=== PATIENT | male | born 1975 | race Caucasian/White ===

== ENCOUNTER 2016-11-06 14:18 | Inpatient (IN) ==
--- NOTE | 2016-11-06 16:07 | Diag Imaging Result Doc PS360 ---
EXAM: CHEST-PORTABLE HISTORY: psych eval TECHNIQUE: AP portable at 1555 COMMENT: the cardiomediastinal silhouette is enlarged however some of this may be due to poor inspiration. There are no previous studies. IMPRESSION: Questionable cardiomegaly otherwise no evidence of acute disease. Electronically signed by Kyle Shea 11/06/2016 4:05 PM
[2016-11-06 16:11] LABS: MANUAL DIFF NEEDED? NO
[2016-11-06 16:12] LABS: URINE CULTURE NEEDED? NO; URINE MICRO REVIEW NEEDED? NO; URINE SOURCE CLEAN CATCH
[2016-11-06 16:15] LABS: BILIRUBIN URINE NEGATIVE (NEGATIVE); BLOOD URINE NEGATIVE (NEGATIVE); COLOR YELLOW; GLUCOSE URINE 100 mg/dL (NEGATIVE); LEUKOCYTES URINE NEGATIVE (NEGATIVE); NITRITE URINE NEGATIVE (NEGATIVE); PH URINE 5.5; PROTEIN URINE TRACE mg/dL (NEGATIVE); SP GRAVITY URINE 1.018; TURBIDITY URINE CLEAR (CLEAR); UROBILINOGEN URINE NORMAL (NORMAL)
[2016-11-06 16:15] LABS: BASO% 0.4 % (0.0-0.8); EOS# 0.09 X1000 (0.0-0.7); EOS% 0.9 % (0.0-10.0); HEMATOCRIT 46.9 % (42.0-52.0); HEMOGLOBIN 16.6 g/dL (14.0-18.0); LYMPH# 2.97 X1000 (1.2-3.4); LYMPH% 31.3 % (20.5-51.1); MCH 32.4 PG (27-31); MCHC 35.4 g/dL (33-37); MCV 91.4 FL (81-99); MONO% 10.5 % (1.7-9.3); MPV 9.9 FL (7.4-10.4); NEUT% 56.9 % (42.2-75.2); PLT 156 X1000 (130-400); RBC 5.13 XMIL (4.7-6.1)
[2016-11-06 16:16] LABS: UR EPITHELIAL CELLS <10 /HPF (<10); URINE BACTERIA NEGATIVE /HPF; URINE RBC <10 /HPF (<10); URINE WBC <10 /HPF (<10)
[2016-11-06] MEDS ORDERED: ATIVAN IV ONE ×2 (16:35→20:37)
[2016-11-06] MEDS ORDERED: M.V.I.-12 10 ML, FOLIC ACID 1 MG, MAGNESIUM SULFATE 1 GM, THIAMINE 100 MG in NS 1,000 ML IV ONE ×2 (16:36→18:05)
[2016-11-06 16:40] LABS: AGAP 16; ALBUMIN 3.6 g/dL (3.5-5.0); ALKALINE PHOSPHATASE 99 U/L (32-122); BUN 11 mg/dL (8-22); CHLORIDE 95 mmol/L (98-107); COSMO 270; GOT 182 U/L (10-34); GPT 175 U/L (10-44); MAGNESIUM 1.8 mg/dL (1.5-2.7); POTASSIUM 3.4 mmol/L (3.5-5.1); SODIUM 133 mmol/L (136-145); TCO2 22 mmol/L (25-35); TOTAL BILIRUBIN 0.42 mg/dL (0.20-1.00); TOTAL PROTEIN 7.2 g/dL (6.3-8.3)
--- NOTE | 2016-11-06 18:07 | PROVIDER DOCUMENTATION ---
This chart was entered by Kami Pagan Scribe, acting as scribe for Mauro Panda MD. [id number] Abuse/Overdose - General Chief Complaint: Req. Detox Stated Complaint: NEED DETOX Time Seen by Provider: 11/06/16 15:55 Source: patient Allergies/Adverse Reactions: Allergies Allergy/AdvReac Type Severity Reaction Status Date / Time No Known Allergies Allergy Verified 11/06/16 15:23 Home Medications: Home Medication List Medication Instructions Recorded Confirmed Last Taken Type NK [No Home Medications] 11/06/16 11/06/16 Unknown History - History of Present Illness-Drug/Alcohol Nature of Presenting Problem: Pt is 41 y/o M presents to the ED with request for alcohol detox. Pt states a long hx of alcohol abuse. Pt states he has been on a 10 day alcohol binge. Pt states if he does not get help he will end up killing himself from drinking. Pt denies prior rehab and SI. Pt states RUQ pain. This episode of drinking or use began:: other (10 days) Severity: reports: mild Situational problems related to:: reports: N/A Psychiatric Complaints: reports: denies symptoms Associated Symptoms: reports: other (abdominal pain) Any injuries associated with this episode of intoxication?: No Similar Symptoms Previously?: Yes Recently seen or treated by another doctor?: No - Substance Abuse Substance Use: reports: alcohol - Alcohol Abuse Usually drinks:: binge Other alcohols?: reports: N/A Review of Systems - Adult - REVIEW OF SYSTEMS - ADULT Constitutional: reports: no symptoms reported Eyes: reports: no symptoms reported Ears, Nose, Mouth & Throat: reports: no symptoms reported Cardiovascular: reports: no symptoms reported Respiratory: reports: no symptoms reported Gastrointestinal: reports: no symptoms reported Genitourinary: reports: no symptoms reported Musculoskeletal: reports: no symptoms reported Integumentary: reports: no symptoms reported Neurological: reports: no symptoms reported Psychiatric: reports: alcohol/drug dependence (alcohol dependence). denies: anxiety, panic attacks, suicidal thoughts Endocrine: reports: no symptoms reported Hematologic/Lymphatic: reports: no symptoms reported Allergic/Immunologic: reports: no symptoms reported All Other Systems: Reviewed and Negative Past History - Adult - PAST MEDICAL HISTORY-ADULT Review of Records: reports: Nursing Assessment Review, Medications Reviewed, Social history reviewed & non-contributory. Major Childhood Illnesses: reports: denies history Cardiovascular: reports: HTN Respiratory: reports: denies history Gastrointestinal: reports: diverticulosis, hepatitis (C) Obstetrical/Gynecological: reports: denies history Genitourinary: reports: kidney stones Musculoskeletal: reports: denies history Neurological: reports: denies history Psychiatric: reports: depression Endocrine/Immune: reports: denies history Other Conditions: reports: other (Hep C) - PRIOR SURGERIES/PROCEDURES Surgical/Procedure History: reports: other (liver bx) - PRIOR HOSPITALIZATIONS Prior Hospitalizations: reports: none - IMMUNIZATION STATUS Childhood Immunizations: See Nurse Assessment Flu Vaccine: See Nurse Assessment - FAMILY HISTORY Family History: reviewed, not pertinent - SOCIAL HISTORY Smoking: quit less than 1 year, cigarettes Substance Use: alcohol Alcohol Use Frequency: every day Number of drinks per typical drinking period:: 11-15 drinks Living Situation: family Physical Exam-General - PHYSICAL EXAM-ADULT Initial Vital Signs Reviewed: Yes - CONSTITUTIONAL General Appearance: alert, no apparent distress - EYES Eyes: PERRL/EOMI, pink conjunctivae - HEAD, EARS, NOSE, MOUTH & THROAT HENMT: normocephalic/atraumatic, moist mucous membranes, normal ENT inspection - NECK Neck: non-tender, full range of motion, supple, normal inspection - RESPIRATORY Respiratory: chest non-tender, lungs clear, normal breath sounds - CARDIOVASCULAR Cardiovascular: normal peripheral pulses, tachycardia - GASTROINTESTINAL (ABDOMEN) Abdominal Exam: normal bowel sounds, soft, tenderness (RUQ) - LYMPHATIC Lymphatic: no adenopathy - MUSCULOSKELETAL Back Exam: normal inspection, no CVA tenderness, no vertebral tenderness Extremity: normal range of motion, non-tender, normal gait, normal inspection - SKIN Integumentary: normal color, normal turgor, warm/dry - NEUROLOGIC Neurologic: grossly normal - PSYCHIATRIC Psych/Mental Status: normal mood/affect, oriented x 3 Progress - PLAN OF CARE/RESULTS Progress/Plan/Lab Results: Vital Signs - 8 hr 11/06/16 14:33 Temperature 97.9 F Pulse Rate 114 H Respiratory Rate 20 Blood Pressure 146/100 O2 Sat by Pulse Oximetry 97 Laboratory Results - last 24 hr 11/06/16 11/06/16 11/06/16 15:00 15:00 15:00 WBC 9.48 RBC 5.13 Hgb 16.6 Hct 46.9 MCV 91.4 MCH 32.4 H MCHC 35.4 RDW Std Deviation 12.7 Plt Count 156 MPV 9.9 Immature Gran % (Auto) 0.0 Neut % (Auto) 56.9 Lymph % (Auto) 31.3 [place] % (Auto) 10.5 H Eos % (Auto) 0.9 Baso % (Auto) 0.4 Immature Gran # (Auto) 0.00 Neut # (Auto) 5.38 Lymph # (Auto) 2.97 [place] # (Auto) 1.00 H Eos # (Auto) 0.09 Baso # (Auto) 0.04 Sodium 133 L Potassium 3.4 L Chloride 95 L Carbon Dioxide 22 L Anion Gap 16 BUN 11 Creatinine 0.7 Estimated GFR/1.73 m2 > 60 BUN/Creatinine Ratio 16 Glucose 173 H Calculated Osmolality 270 Calcium 8.0 L Magnesium 1.8 Total Bilirubin 0.42 AST 182 H ALT 175 H Alkaline Phosphatase 99 Total Protein 7.2 Albumin 3.6 Globulin 3.6 Albumin/Globulin Ratio 1.0 Vitamin B12 Folate 6.1 L TSH Free T4 Urine Source Urine Color Urine Turbidity Urine pH Ur Specific [place] Urine Protein Ur Glucose (Stick) Ur Ketones (Stick) Urine Blood Urine Nitrite Urine Bilirubin Urobilinogen Dipstick Urine Leukocytes Urine WBC (Auto) Urine RBC (Auto) U Epithel Cells (Auto) Urine Bacteria (Auto) RPR 11/06/16 11/06/16 11/06/16 15:00 15:00 15:00 WBC RBC Hgb Hct MCV MCH MCHC RDW Std Deviation Plt Count MPV Immature Gran % (Auto) Neut % (Auto) Lymph % (Auto) [place] % (Auto) Eos % (Auto) Baso % (Auto) Immature Gran # (Auto) Neut # (Auto) Lymph # (Auto) [place] # (Auto) Eos # (Auto) Baso # (Auto) Sodium Potassium Chloride Carbon Dioxide Anion Gap BUN Creatinine Estimated GFR/1.73 m2 BUN/Creatinine Ratio Glucose Calculated Osmolality Calcium Magnesium Total Bilirubin AST ALT Alkaline Phosphatase Total Protein Albumin Globulin Albumin/Globulin Ratio Vitamin B12 426 Folate TSH 1.75 Free T4 1.06 Urine Source Urine Color Urine Turbidity Urine pH Ur Specific [place] Urine Protein Ur Glucose (Stick) Ur Ketones (Stick) Urine Blood Urine Nitrite Urine Bilirubin Urobilinogen Dipstick Urine Leukocytes Urine WBC (Auto) Urine RBC (Auto) U Epithel Cells (Auto) Urine Bacteria (Auto) RPR NON-REACTIVE 11/06/16 15:59 WBC RBC Hgb Hct MCV MCH MCHC RDW Std Deviation Plt Count MPV Immature Gran % (Auto) Neut % (Auto) Lymph % (Auto) [place] % (Auto) Eos % (Auto) Baso % (Auto) Immature Gran # (Auto) Neut # (Auto) Lymph # (Auto) [place] # (Auto) Eos # (Auto) Baso # (Auto) Sodium Potassium Chloride Carbon Dioxide Anion Gap BUN Creatinine Estimated GFR/1.73 m2 BUN/Creatinine Ratio Glucose Calculated Osmolality Calcium Magnesium Total Bilirubin AST ALT Alkaline Phosphatase Total Protein Albumin Globulin Albumin/Globulin Ratio Vitamin B12 Folate TSH Free T4 Urine Source CLEAN CATCH Urine Color YELLOW Urine Turbidity CLEAR Urine pH 5.5 Ur Specific [place] 1.018 Urine Protein TRACE A Ur Glucose (Stick) 100 A Ur Ketones (Stick) NEGATIVE Urine Blood NEGATIVE Urine Nitrite NEGATIVE Urine Bilirubin NEGATIVE Urobilinogen Dipstick NORMAL Urine Leukocytes NEGATIVE Urine WBC (Auto) <10 Urine RBC (Auto) <10 U Epithel Cells (Auto) <10 Urine Bacteria (Auto) NEGATIVE RPR Orders Category Date Time Status CHEST-PORTABLE [RAD] Stat Exams 11/06/16 15:51 Completed ALCOHOL BLOOD Stat Lab 11/06/16 17:57 Uncollected CBC WITH ELECTRONIC DIFF [HEME] Stat Lab 11/06/16 15:00 Completed COMPREHENSIVE METABOLIC PANEL [CHEM] Stat Lab 11/06/16 15:00 Completed FOLATE Stat Lab 11/06/16 15:00 Completed FREE T4 Stat Lab 11/06/16 15:00 Completed MAGNESIUM [CHEM] Stat Lab 11/06/16 15:00 Completed RPR [SERO] Stat Lab 11/06/16 15:00 Completed TSH Stat Lab 11/06/16 15:00 Completed URINALYSIS W/POSS RFLX CULT-1 [URINALYSIS] Stat Lab 11/06/16 15:59 Completed VITAMIN B12 Stat Lab 11/06/16 15:00 Completed Banana Bag X1 Bag Over 1 Hour Med 11/06/16 18:05 Ordered Mvi [M.v.i.-12] 10 ml Folic Acid 1 mg Magnesium Sulfate 1 gm Thiamine 100 mg 0.9% Sodium Chloride Inj [Ns] 1,000 ml IV NOW Lorazepam [Ativan] Med 11/06/16 16:35 Discontinued 2 mg IV NOW ONE Mvi [M.v.i.-12] 10 ml Med 11/06/16 16:36 Discontinued Folic Acid 1 mg Magnesium Sulfate 1 gm Thiamine 100 mg 0.9% Sodium Chloride Inj [Ns] 1,000 ml IV NOW EKG [EKG] Stat Ther 11/06/16 15:51 Ordered Result Diagrams: 11/06/16 15:00 11/06/16 15:00 - EKG 1 Time of EKG reading by physician:: 16:30 EKG Read and Signed by:: Mauro Panda EKG Interpretation (*Must complete 3 of following elements*): Abnormal Rate: 96 Rhythm: normal sinus rhythm Comments: voltage criteria for left ventricular hypertrophy - XRAY 1 XRAY Study: Chest Impression: Abnormal XRAY Interpretation: questionable cardiomegaly otherwise no evidence of acute disease Departure - Departure Date of Disposition Decision: 11/06/16 Time of Disposition Decision: 18:06 DIAGNOSIS: Alcohol abuse Disposition: HOME 01 Certified Medical Emergency: Emergent Condition: Stable Additional Freetext Instructions: Follow up with outpatient detox center. Referrals and Follow-Ups: None,PCP [Primary Care Provider] - - Critical Care Note This patient required my direct & personal management of CC.: No Attestation - Physician/ JOSE FRANCISCO Attestation The physician spent face to face time with patient:: Yes Advanced Practice Provider documentation review:: The physician spent face to face time with this patient and agrees with all MLP documentation, treatment, and medical decision making by the MLP. See provider notes for further information. This chart was documented by the indicated scribe, (Kami Pagan Scribe) and accurately reflects the services I performed and decisions made by Amarilys gray Christophe I, MD, as attested by the provider's signature.
[2016-11-06 20:02] LABS: UR AMPHETAMINES QUAL NONE DETECTED (NONE DETECT); UR BARBITUATES QUAL NONE DETECTED (NONE DETECT); UR BENZODIAZEPIN QUAL NONE DETECTED (NONE DETECT); UR CANNABINOIDS QUAL NONE DETECTED (NONE DETECT); UR COCAINE QUAL NONE DETECTED (NONE DETECT); UR METHADONE QUAL NONE DETECTED (NONE DETECT); UR OPIATES QUAL NONE DETECTED (NONE DETECT); UR OXYCODONE QUAL NONE DETECTED (NONE DETECT); UR PCP QUAL NONE DETECTED (NONE DETECT)
[2016-11-06] MEDS ORDERED: OFIRMEV 1000 MG/ISOTONIC SOLN 1,000 MG/100 ML BOTTLE IV ONE (20:09)
[2016-11-06] MEDS ORDERED: TORADOL IV ONE (23:06)
[2016-11-07] MEDS ORDERED: ATIVAN IV ONE (01:17)
--- NOTE | 2016-11-07 04:14 | HISTORY AND PHYSICAL ---
CHIEF COMPLAINT: Having nausea, vomiting, not feeling well. HISTORY OF PRESENTING ILLNESS: A 41-year-old male with a history of chronic alcoholism and hepatitis C. Apparently had been going on a binge drink for the past 10 days. His last drink was about 2 days ago. He states that he started getting nausea and vomiting, and subsequently had come to the emergency department. In the ER, he was evaluated. He had some symptoms of depression with suicidal ideation. He was evaluated by psychiatry. However, he does not have any insurance so he could not be admitted to their service. However, patient continued to have symptoms of withdrawal and agitation. Due to his presenting symptoms, it was thought that he would need admission for further evaluation and management. At the time of my examination, he denied any headache, fever, chills, chest pain, shortness of breath, or any weight changes. States he is having nausea, vomiting, and he seeing things and not feeling well. PAST MEDICAL HISTORY: Hepatitis C. PAST SURGICAL HISTORY: None. ALLERGIES: No known drug allergies. CURRENT MEDICATIONS: None. SOCIAL HISTORY: He denies any history of smoking. Admits to alcohol use daily. History of IV drug abuse in the past. FAMILY HISTORY: No history of coronary disease. REVIEW OF SYSTEMS: Twelve point review of systems listed as in the HPI. Other systems negative. PHYSICAL EXAMINATION: GENERAL: Cooperative, friendly male. He is resting more comfortably now. VITAL SIGNS: Temperature 97.9 degrees, pulse 114, respirations 20, blood pressure 146/100, he is saturating 97%. HEENT: Atraumatic, normocephalic. Extraocular movements intact. PERRLA. NECK: No masses. CHEST: Clear to auscultation. CARDIOVASCULAR: Regular rate and rhythm. ABDOMEN: Soft. Positive bowel sounds. Some right upper quadrant tenderness. EXTREMITIES: No edema. NEUROLOGIC: He is awake, alert, oriented x3. : No bladder distention. SKIN: Warm. LABORATORIES AND STUDIES: Sodium 133, potassium 3.4, chloride 95, CO2 is 22, BUN is 11, creatinine 0.7, glucose is 173. AST is 182, ALT 173, alkaline phosphatase 99, folate 6.1. Alcohol level is 208. ASSESSMENT: A 41-year-old male with a history of hepatitis C and chronic alcoholism who had presented to the emergency department after the patient went on a 10 day binge drinking. His last drink was about 2 days ago. He developed symptoms of agitation and hallucination consistent with withdrawal. Subsequently, he will need hospitalization for further management. 1. Alcohol withdrawal. 2. Chronic alcoholism. 3. Abnormal liver function tests. 4. History of hepatitis C. 5. Depression was suicidal ideation. PLAN: 1. We will admit patient to medical floor. 2. Continue with support treatment. 3. We will give patient a banana bag and Ativan p.r.n. agitation. 4. We will check an ultrasound of the right upper quadrant. 5. We will consult psychiatry again. 6. We will put patient on DVT prophylaxis with SCDs. 7. We will continue to follow and reassess. cc: Fercho Caal MD
[2016-11-07] MEDS ORDERED: ZOFRAN IV PRN (04:25)
--- NOTE | 2016-11-07 05:02 | EKG Report ---
Test Performed on : 11/06/2016 4:30:44 PM Test Reason : [facility] court medical clearance Blood Pressure : / mmHG Vent. Rate : 096 BPM Atrial Rate : 096 BPM P-R Int : 132 ms QRS Dur : 084 ms QT Int : 346 ms P-R-T Axes : 055 -08 -12 degrees QTc Int : 437 ms Normal sinus rhythm. Voltage criteria for left ventricular hypertrophy Abnormal ECG No previous ECGs available Unconfirmed Result
[2016-11-07] MEDS: ATIVAN IV PRN ×3 (05:03→19:48)
[2016-11-07] MEDS: MORPHINE IV PRN ×5 (05:03→21:58)
--- NOTE | 2016-11-07 08:07 | Diag Imaging Result Doc PS360 ---
EXAM: US ABDOMEN-COMPLETE HISTORY: abdominal pain TECHNIQUE: Transabdominal COMMENT: The liver is hyperechoic. The aorta and inferior vena cava are normal in appearance where there are visible. There is antegrade flow in the portal vein. The gallbladder is clear and nontender. The head of the pancreas is unremarkable, the remainder is obscured. The kidneys are without evidence of hydronephrosis or mass. The spleen is not enlarged. There are no abnormal fluid collections. IMPRESSION: Hepatic steatosis. Electronically signed by Kyle Shea 11/07/2016 8:05 AM
[2016-11-07] MEDS: FOLIC ACID PO SCH (09:18)
--- NOTE | 2016-11-07 13:32 | PROGRESS NOTE ---
DATE: 11/07/2016 SUBJECTIVE: The patient is awake, alert and oriented. Answers questions appropriately. He denies having any fever or chills. The patient wants to quit smoking, but has been on binge drinking for the last 10 days. Not suicidal nor homicidal. OBJECTIVE: Vital signs: Blood pressure 132/88, pulse of 83, respirations 17, temperature of 98.6 degrees, satting 98% on room air. General appearance: A well-developed, well-nourished white male in no acute distress. HEENT: Anicteric sclerae. Clear conjunctivae. Neck: Supple. No JVD. No bruit. Cardiovascular: S1, S2. Normal rate and rhythm. No murmur, rubs, or gallops. Pulmonary: Clear to auscultation bilaterally. GI: Soft, nontender, nondistended. Normoactive bowel sounds. Musculoskeletal: No clubbing, cyanosis, or edema. Neuro: No tremor. LABS: WBC 9.4, hemoglobin 16.6, hematocrit of 46.9, platelets of 156. Chemistry: Sodium 133, potassium 3.4, chloride 99, bicarbonate 22, BUN 11, creatinine 0.7, glucose of 170. ASSESSMENT AND PLAN: This is a 41-year-old white male alcoholic admitted to the hospital asking for help to get him detoxed: 1. Alcohol abuse. The patient denies having any history of delirium tremens. He was able to go for a long period without drinking and has no problem. He was sober for about 6 months until 10 days prior to his admission after he went on a binge drinking. Social workers unable to get him to rehab to detox any time soon. The patient does have insurance. He does go to [facility] and has supportive care. We will transfer the patient to the floor. We will monitor him in-house for another day. If there are no signs of alcohol withdrawal, we will discharge the patient home and will try to help with his alcohol abuse.
[2016-11-07] MEDS: LIBRIUM PO SCH ×2 (15:59→23:03)
[2016-11-08] MEDS: MORPHINE IV PRN ×4 (01:38→13:35)
[2016-11-08] MEDS: ATIVAN IV PRN ×2 (02:25→08:27)
[2016-11-08] MEDS: LIBRIUM PO SCH ×2 (04:14→10:16)
[2016-11-08 06:46] LABS: MANUAL DIFF NEEDED? NO
[2016-11-08 06:51] LABS: BASO% 0.3 % (0.0-0.8); EOS# 0.12 X1000 (0.0-0.7); EOS% 1.9 % (0.0-10.0); HEMATOCRIT 45.5 % (42.0-52.0); HEMOGLOBIN 16.4 g/dL (14.0-18.0); LYMPH# 1.63 X1000 (1.2-3.4); MCH 32.6 PG (27-31); MCV 90.5 FL (81-99); MONO# 0.87 X1000 (0.11-0.59); MONO% 13.9 % (1.7-9.3); MPV 10.6 FL (7.4-10.4); NEUT% 57.9 % (42.2-75.2); PLT 114 X1000 (130-400); RBC 5.03 XMIL (4.7-6.1)
[2016-11-08 07:17] LABS: AGAP 10; BUN 12 mg/dL (8-22); CALCIUM 8.7 mg/dL (8.8-10.2); CHLORIDE 97 mmol/L (98-107); COSMO 268; POTASSIUM 3.6 mmol/L (3.5-5.1); SODIUM 134 mmol/L (136-145); TCO2 27 mmol/L (25-35)
[2016-11-08] MEDS: FOLIC ACID PO SCH (08:28)
[2016-11-08 11:11] VITALS: BP 151/104
--- NOTE | 2016-11-08 12:00 | PROGRESS NOTE ---
DATE: 11/08/2016 SUBJECTIVE: The patient is complaining of having some pain in his abdomen, complaining of having some dizziness. OBJECTIVE: Vital signs: Blood pressure 151/104, pulse of 89, respirations 18, temperature of 97.4 degrees, satting 97%. General appearance: Well-developed, well-nourished white male in no acute distress. HEENT: Anicteric sclerae. Clear conjunctivae. Neck: Supple. No JVD. No bruit. Cardiovascular: S1, S2. Normal rate and rhythm. No murmur, rubs, or gallops. Pulmonary: Clear to auscultation bilaterally. GI: Soft, nontender, nondistended. Normoactive bowel sounds. Musculoskeletal: No clubbing, cyanosis, or edema. ASSESSMENT AND PLAN: A 41-year-old, alcoholic admitted requesting detoxification: 1. Alcoholism. restuarant crew worker had been consulted and we have provided the patient with information that he needs to check himself into rehabilitation if he needed. He had to volunteer to do so. The patient does not have any insurance and [facility] probably will not take him. restuarant crew worker has made a referral, but he can follow up with them as an outpatient. From my standpoint, the patient is stable enough to go home. His abdominal pain with an ultrasound just showed fatty liver, but otherwise no acute process. As far as the dizziness is concerned, we will get the patient up and walking. I do not think this has anything to do with the blood pressure. The patient unfortunately does not have anywhere to go. I would suggest [facility] or the [facility] in [place].
--- NOTE | 2016-11-08 16:56 | DISCHARGE SUMMARY ---
ADMISSION DATE: 11/06/2016 DISCHARGE DATE: 11/08/2016 CONSULTATIONS: None. PERTINENT PROCEDURES: Abdominal ultrasound showed hepatic steatosis. DISCHARGE DIAGNOSIS: Alcohol abuse. Inside Sales Director was consulted. The patient has been given information for a list of treatment centers to call as well as his sponsor has been notified. The patient was also evaluated by Jhonatan as well as Bharathi Sanderson. [facility] does not recommend any psychiatric treatment however secondary to the patient not having health insurance Jhonatan access representative explained the process for state funded treatment centers that take patients based on an indigent basis. They have contacted [facility] as well as [facility] for state evaluation for inpatient treatment. He has also been advised that the general wait time is from 2-6 weeks. The patient was monitored closely for DTs. The patient stated he had been for about 6 months until 10 days prior to his admission after he went binge drinking. He does go to [facility] for supportive care. The patient was transferred from the ICU to the floor and monitored for another day with no signs of DTs. Stable. HOSPITAL COURSE: The patient is a 41-year-old male with chronic alcoholism and hepatitis C. He had been binge drinking for 10 days. Prior to that he had been sober for about 6 months. He started to have nausea and vomiting. Subsequently came to the ED where he was evaluated. He had some symptoms of depression and suicidal ideation. He was evaluated by psychiatry, however they did not recommend any inpatient services. However patient continued to have symptoms of withdrawal and agitation. So he was admitted to the medical floor and provided with supplemental support and treatment with a banana bag and Ativan p.r.n. for agitation. He underwent a right upper quadrant ultrasound that hepatic steatosis. Jhonatan was also consulted and referred the patient for outpatient treatment through a state facility secondary to not having any insurance. The patient was moved out of the ICU to the floor. He has remained stable. Again, he has support with a sponsor as well as . The patient can return to the ED for any worsening of symptoms. Vital signs at time of his discharge, temperature is 97.4 degrees, heart rate 83 , respirations 20, blood pressure is 151/104. O2 is 97% on room air. DISCHARGE DIET: Regular. DISCHARGE MEDICATIONS: As per Dr. Berumen. Please see MAR. DISPOSITION: The patient is being discharged home. FOLLOWUP: He will follow up with a state approved outpatient detox center. DISCHARGE INSTRUCTIONS: The patient has been advised to abstain from any alcohol. Patient can return to the ED for any worsening of symptoms DISCHARGE TIME: Thirty minutes. Dictated by GREGG Valdez for Steve Berumen MD I personally evaluated and examined the patient in conjunction to the TRAINING TECHNICIAN and agreed with her plans and disposition. SARAHI
== END 2016-11-08 14:05 | disposition home or self-care (01) ==
LOC: ED 14:18 → ICU 11-07 04:11 → SUATTDRO 11-07 04:11 → 4N 11-07 15:46
PROVIDERS: ATTEND Internal Medicine

== ENCOUNTER 2019-02-22 12:47 | Inpatient (IN) ==
--- NOTE | 2019-02-22 13:56 | Diag Imaging Result Doc PS360 ---
EXAM: CHEST-1 VIEW 02/22/2019 HISTORY: Abd pain TECHNIQUE: Erect AP portable upright at 1345 COMMENT: The inspiration is less optimal than on 12/22/2018. Compared to the previous studies are has been no significant change. IMPRESSION: Stable chest. Electronically signed by Kyle Shea 02/22/2019 1:53 PM
[2019-02-22] MEDS ORDERED: ATIVAN IV ONE (14:12)
[2019-02-22] MEDS ORDERED: NS 1,000 ML IV ONE ×2 (14:12→16:46)
[2019-02-22] MEDS ORDERED: PHENERGAN IM ONE (14:13)
[2019-02-22] MEDS ORDERED: SODIUM CHLORIDE 0.9% INJ ONE (14:14)
[2019-02-22] MEDS ORDERED: REGLAN IV ONE (14:14)
[2019-02-22] MEDS ORDERED: PROTONIX IV ONE (14:14)
[2019-02-22 14:41] LABS: BASO# 0.04 X1000 (0.0-0.2); BASO% 0.4 % (0.0-0.8); HEMATOCRIT 54.2 % (42.0-52.0); HEMOGLOBIN 19.4 g/dL (14.0-18.0); LYMPH# 1.54 X1000 (1.2-3.4); MCH 32.1 PG (27-31); MCHC 35.8 g/dL (33-37); MCV 89.7 FL (81-99); MONO# 0.59 X1000 (0.11-0.59); MONO% 5.7 % (1.7-9.3); MPV 9.9 FL (7.4-10.4); NEUT# 8.13 X1000 (1.4-6.5); NEUT% 78.9 % (42.2-75.2); PLT 199 X1000 (130-400); RBC 6.04 XMIL (4.7-6.1)
[2019-02-22 14:59] LABS: INR 1.07; PROTIME 14.1 Seconds (11.0-16.0)
[2019-02-22 15:00] LABS: AGAP 23; ALB/GLOB RATIO 1.3; ALBUMIN 4.6 g/dL (3.5-5.0); ALKALINE PHOSPHATASE 115 U/L (32-122); BUN 10 mg/dL (8-22); CALCIUM 8.2 mg/dL (8.8-10.2); CHLORIDE 91 mmol/L (98-107); COSMO 289; CREATININE 0.9 mg/dL (0.7-1.2); ESTIMATED GFR > 60; GLUCOSE 361 mg/dL (70-104); GOT 231 U/L (10-34); GPT 179 U/L (10-44); POTASSIUM 3.5 mmol/L (3.5-5.1); SODIUM 138 mmol/L (136-145); TCO2 24 mmol/L (25-35); TOTAL BILIRUBIN 1.09 mg/dL (0.20-1.00); TOTAL PROTEIN 8.2 g/dL (6.3-8.3)
[2019-02-22 15:02] LABS: PTT 27.4 Seconds (22.3-41.8)
[2019-02-22 15:09] LABS: CK PROFILE 267 U/L (24-204)
[2019-02-22 15:53] LABS: CK INDEX 1.6 (0.0-2.5); CK-MB 4.14 ng/mL (0.0-5.0)
[2019-02-22] MEDS ORDERED: NS 500 ML IV ONE (16:43)
[2019-02-22] MEDS ORDERED: DILAUDID IV ONE ×2 (16:47→18:00)
[2019-02-22 17:37] LABS: URINE SOURCE CLEAN CATCH
[2019-02-22 17:44] LABS: BILIRUBIN URINE NEGATIVE (NEGATIVE); BLOOD URINE TRACE (NEGATIVE); COLOR YELLOW; GLUCOSE URINE 1000 mg/dL (NEGATIVE); KETONE URINE NEGATIVE (NEGATIVE); LEUKOCYTES URINE NEGATIVE (NEGATIVE); NITRITE URINE NEGATIVE (NEGATIVE); PROTEIN URINE 200 mg/dL (NEGATIVE); TURBIDITY URINE CLEAR (CLEAR); UROBILINOGEN URINE 4 mg/dL (NORMAL)
[2019-02-22 17:46] LABS: UR EPITHELIAL CELLS <10 /HPF (<10); URINE BACTERIA NEGATIVE /HPF; URINE RBC <10 /HPF (<10); URINE WBC <10 /HPF (<10)
--- NOTE | 2019-02-22 17:50 | HISTORY AND PHYSICAL ---
HISTORY OF PRESENT HISTORY: He presented to the emergency room with alcohol intoxication, but nausea and vomiting and dark emesis. He had been here on 10/15/2017, vomiting, agitation, epigastric pain at that time. This is a 43-year-old with past medical history of clinical depression, alcohol abuse. He has been on alcohol for quite a bit. Apparently, he drinks vodka and will go on alcohol binges. His alcohol level was 400. Complaining of nausea and vomiting up dark coffee-ground material. He is hurting in his abdomen, mainly in the right quadrant. PAST SURGICAL HISTORY: No history of surgeries. PAST MEDICAL HISTORY: Has a history notable for hepatitis C. I am not sure what his status is, whether it has been treated, but we will check a hepatitis profile. SOCIAL HISTORY: He does not smoke, has not used IV drugs by previous report and he used to drink about 2 bottles of vodka a day. Not sure how much he has recently consumed. REVIEW OF SYSTEMS: Not really able to give much on review of systems. He was very miserable and had nausea. He was apologetic that we had to put him in the hospital and called himself a drunk. PHYSICAL EXAMINATION: VITAL SIGNS: Temperature 98.1 degrees, pulse 120, respirations 28, blood pressure 140/102. HEENT: Pupils appear equal. I did not see any distended neck veins. He had no respiratory distress. He did not appear to be jaundiced. Sclera appeared clear. Conjunctiva was pink. ABDOMEN: Was not distended. He was complaining of pain in the right side. I did not appreciate any pedal edema. Neck appears supple. He did not report any recent head traumas or chest trauma. LABORATORY DATA: White count 76225, hematocrit is 54, platelet count 199,000. Sodium .138, potassium 3.5, chloride 91, BUN 10, creatinine 0.9, blood sugar 361, magnesium 2.0, calcium 8.2, AST 231, ALT 179. CK was 267, troponin less than 0.01 albumin was 4.6. Pro time 14.1, PTT was 27. His plasma ethanol level was 420 mg per dL. Chest x-ray, the inspiration was less than optimal, but appears stable compared to chest x-ray since 12/22/2018. ASSESSMENT AND PLAN: 1. Alcohol intoxication. Suspect alcoholic hepatitis. Although he has a history of hepatitis C, I think we need to try and see whether he was treated for hepatitis C in the past. We will get another hepatitis profile. We will ask Gastroenterology to help us with this. He had a renal CT done in March 2015. At that time, he had some mid right ureteral stones, nonobstructing left renal stones, partial resolution of sigmoid diverticulitis. He had an abdominal ultrasound and November 2016. He had hepatic steatosis at that time so we will probably repeat another ultrasound on his abdomen. I will see what GI wants to do. He does not have a history of cirrhosis that we know of. His differential is gastritis and peptic ulcer disease, esophageal irritation including Savanna-Rfye tear and possible esophageal varices if he has portal hypertension. For now, we will give him some fluids and some antiemetics and see if he can kind of calm down. We will watch his hemoglobin and hematocrit. 2. Alcohol intoxication. He may have withdrawal symptoms including delirium toxicosis, so we will watch him in the unit. He can have Ativan 1 to 2 mg q. 2 hours p.r.n. withdrawal signs or agitation. We will run normal saline in at 150 mL an hour and we will let him use Zofran. I will also let him use Reglan for nausea. 3. Note that his sugar is high so I do not know if this is a new diagnosis, but we will check a hemoglobin A1c tomorrow and we will check patterned sugars. He may have underlying diabetes. 4. History of depression, aware. REVIEW OF HIS CURRENT MEDICATIONS: He is taking Flagyl 500 mg p.o. t.i.d. I am not sure what that was for. We do know he has a history of diverticulosis and he has had diverticulitis before. cc: Manuelito Rubin MD
[2019-02-22] MEDS: NS 1,000 ML IV SCH (19:36)
[2019-02-22] MEDS: ATIVAN IV PRN ×2 (19:57→23:02)
[2019-02-22] MEDS: HUMALOG SUBQ SCH (21:00)
[2019-02-22] MEDS: REGLAN IV SCH (21:00)
[2019-02-22 21:25] LABS: HEMATOCRIT 51.8 % (42.0-52.0); HEMOGLOBIN 18.3 g/dL (14.0-18.0)
[2019-02-22] MEDS: PROTONIX IV SCH (23:03)
[2019-02-23] MEDS: REGLAN IV SCH ×4 (02:42→20:41)
[2019-02-23] MEDS: ATIVAN IV PRN ×2 (02:42→16:48)
[2019-02-23] MEDS ORDERED: MORPHINE IV ONE (05:23)
--- NOTE | 2019-02-23 06:12 | Diag Imaging Result Doc PS360 ---
EXAM: CHEST-PORTABLE HISTORY: FOLLOW UP TECHNIQUE: Portable chest COMPARISON: 02/22/2019 FINDINGS: Slightly improved inspiratory effort. The heart is borderline mildly prominent. The vessels are not distended. There are no infiltrates. No effusion identified. IMPRESSION: Improved inspiratory effort. Electronically signed by Abdulaziz Valencia 02/23/2019 6:10 AM
[2019-02-23] MEDS: HUMALOG SUBQ SCH ×4 (06:23→20:46)
[2019-02-23 06:57] LABS: BASO# 0.02 X1000 (0.0-0.2); BASO% 0.2 % (0.0-0.8); EOS# 0.01 X1000 (0.0-0.7); EOS% 0.1 % (0.0-10.0); HEMATOCRIT 44.3 % (42.0-52.0); HEMOGLOBIN 15.3 g/dL (14.0-18.0); LYMPH# 2.53 X1000 (1.2-3.4); LYMPH% 27.6 % (20.5-51.1); MCH 32.3 PG (27-31); MCHC 34.5 g/dL (33-37); MCV 93.5 FL (81-99); MONO# 0.98 X1000 (0.11-0.59); MONO% 10.7 % (1.7-9.3); MPV 9.9 FL (7.4-10.4); NEUT# 5.62 X1000 (1.4-6.5); NEUT% 61.4 % (42.2-75.2); PLT 112 X1000 (130-400); RBC 4.74 XMIL (4.7-6.1); RDW 13.1 % (11.5-14.5); WBC 9.16 X1000 (4.8-10.8)
[2019-02-23 07:06] LABS: INR 1.17; PTT 29.6 Seconds (22.3-41.8)
[2019-02-23 07:10] LABS: AGAP 14; ALB/GLOB RATIO 1.1; ALBUMIN 3.5 g/dL (3.5-5.0); ALKALINE PHOSPHATASE 79 U/L (32-122); BUN 12 mg/dL (8-22); CALCIUM 7.5 mg/dL (8.8-10.2); CHLORIDE 102 mmol/L (98-107); COSMO 283; CREATININE 0.7 mg/dL (0.7-1.2); ESTIMATED GFR > 60; GLUCOSE 138 mg/dL (70-104); GOT 158 U/L (10-34); GPT 113 U/L (10-44); MAGNESIUM 1.5 mg/dL (1.5-2.7); POTASSIUM 3.3 mmol/L (3.5-5.1); SODIUM 141 mmol/L (136-145); TCO2 25 mmol/L (25-35); TOTAL BILIRUBIN 1.67 mg/dL (0.20-1.00); TOTAL PROTEIN 6.7 g/dL (6.3-8.3)
[2019-02-23] MEDS: NS 1,000 ML IV SCH ×3 (07:35→20:41)
[2019-02-23] MEDS ORDERED: DILAUDID IV ONE (07:38)
[2019-02-23] MEDS: ZOFRAN IV PRN ×2 (07:52→20:51)
[2019-02-23 08:00] LABS: HEMOGLOBIN A1C 6.1 % (4.8-6.0)
[2019-02-23] MEDS: SODIUM CHLORIDE 0.9% INJ SCH ×2 (09:27→20:41)
[2019-02-23] MEDS: PROTONIX IV SCH ×2 (09:27→20:41)
[2019-02-23] MEDS ORDERED: VALIUM IV ONE (09:30)
[2019-02-23] MEDS: MORPHINE IV PRN ×4 (09:54→22:05)
[2019-02-23] MEDS ORDERED: M.V.I.-12 10 ML, FOLIC ACID 1 MG, MAGNESIUM SULFATE 1 GM, THIAMINE 100 MG in NS 1,000 ML IV SCH (10:00)
--- NOTE | 2019-02-23 11:07 | PROGRESS NOTE ---
DATE: 02/23/2019 SUBJECTIVE: This morning, Mr. Cleary said he was hurting more specifically on the right upper quadrant. He is not having any more vomiting and he feels thirsty. OBJECTIVE: Vital Signs: Blood pressure is 122/81, pulse is 113, respirations are 20, temperature is 98.6 degrees, the patient is saturating 96% on 2 L. General Examination: Mr. Cleary is a 43-year-old, gentleman. He is in bed. He was not in any cardiopulmonary distress. HEENT: Mucosa is pink and moist. Anicteric. Acyanotic. Neck: Supple. Chest: Good air entry bilaterally. There were no crepitations, no rhonchi. Cardiovascular: Regular rate and rhythm. No murmurs, no rubs, no gallops. GI: Abdomen is soft. There is some tenderness in the right upper quadrant. Mild guarding. No rebound. Bowel sounds were present. Extremities: No pedal edema. FLIGHT SUPERINTENDENT: The patient is awake, alert, and oriented. Laboratory Data: CBC is reviewed and is completely normal. Chemistry is also reviewed. Potassium is 3.2. Rest of chemistry is unremarkable. The liver enzymes show a total bilirubin of 1.67, AST is down to 158, ALT is also down to 113, lipase was 91, and plasma lactate yesterday was 4.7. Diagnostic Studies: A chest x-ray this morning shows improved inspiratory effort. No effusion and no consolidation noted. The patient's current medications have all been reviewed. No changes. ASSESSMENT: 1. Alcohol intoxication on presentation with alcohol level of 420. 2. Transaminitis secondary to acute alcohol hepatitis with hepatitis discriminant function for estimated disease severity of 15. At this point, no indication for steroid use. 3. Lactic acidosis from dehydration. We will continue adequate fluid resuscitation. 4. Right upper quadrant pain secondary to acute hepatitis from alcohol. 5. History of hepatic steatosis from alcohol bingeing. 6. Alcohol use and abuse. The patient has been counseled and we started the patient on gabapentin for possible withdrawal and craving. PLAN: In general, I think Mr. Cleary continues to be critically sick. We are going to start him on clears to see if he is able to tolerate. I have started him on long-acting benzodiazepines to also help with possible withdrawal since we know he has a history of withdrawal in the past. cc: Noe Joseph MD
--- NOTE | 2019-02-23 15:41 | GASTROENTEROLOGY CONSULTATION ---
DATE: 02/23/2019 REASON FOR REFERRAL: Nausea, vomiting, hematemesis, history of hepatitis-C. HISTORY OF PRESENT ILLNESS: This is a 43-year-old male who comes in with alcohol intoxication. He had reported multiple episodes of nausea, vomiting, and noticed dark emesis. The patient reports increased alcohol use. He has reported some abdominal pain. He has had bowel movements, reporting stools to be soft. Some dark stool noted. He reports a diagnosis of hepatitis-C in 2000. This is when he lived in [place]. He states he had never done treatment. PAST MEDICAL HISTORY: Hepatitis-C, alcohol abuse, depression. PAST SURGICAL HISTORY: None reported. ALLERGIES: No known drug allergies. HOME MEDICATIONS: Flagyl unknown reason, dicyclomine as needed, Phenergan as needed. SOCIAL HISTORY: He lives with a roommate. He is not . He has 1 child. He works in a distribution center. No reported tobacco use. Daily alcohol use. REVIEW OF SYSTEMS: Per history of present illness. PHYSICAL EXAMINATION: Vital Signs: Temperature 98.6 degrees, pulse 113, respirations 20, blood pressure 122/81. General: Patient is awake and alert. He is in no acute distress. HEENT: Normocephalic, atraumatic. Pupils equal, round, reactive to light. Sclerae nonicteric. Respiratory: Lung sounds essentially clear. Cardiovascular: Tachycardia, otherwise regular rate and rhythm. Abdomen: Soft, some abdominal tenderness, worse at the right upper quadrant. Positive bowel sounds. Extremities: No lower extremity edema noted. Neurological: Cranial nerves 2-12 grossly intact. Patient is awake and alert. He is oriented. DIAGNOSTIC RESULTS: Laboratory: WBC 9.16, hemoglobin 15.3, hematocrit 44.3, MCV 93.5, platelets 112. Coagulation: Pro time 15.0, INR 1.17, PTT 29.6. Chemistry: Sodium 141, potassium 3.3, chloride 102, CO2 25. BUN 12, creatinine 0.7, glucose 138, calcium 7.5, magnesium 1.5. Total bilirubin 1.67, AST 158, ALT 113, alkaline phosphatase 79, lipase 91. Serum alcohol level 420. Imaging: Chest x-ray with improvement in inspiratory effort. ASSESSMENT AND PLAN: 1. Alcohol intoxication with alcohol level on admission 420. 2. Elevated liver function test most likely related to alcoholic hepatitis. He does have a history of hepatitis-C. 3. Abdominal pain. 4. History of hepatitis-C. Patient reports not being treated. Will check HCV RNA and HCV genotype. Depending on those results, he can follow up with us as an outpatient for possible treatment. 5. Alcohol abuse. Strongly counseled patient on avoidance of all alcohol. Patient is currently being given medications for possible withdrawals. 6. Hematemesis. Currently his hemoglobin and hematocrit were stable. He has not had any further episodes of nausea or vomiting today. We will continue to monitor. We will follow the patient peripherally. Further plans to be made according to his progress. Further plans to be made as needed. Continue proton pump inhibitor. Again order HCV RNA and genotype. Depending on those results, he can follow up with us as an outpatient for possible treatment. We would need to try to get patient assistance; he does not currently have insurance. Further plans will be made as needed. I have discussed this case with Dr. Vazquez. Thank you for this consultation. Dictated by GREGG Edgar for Tomer Vazquez MD cc: GREGG Roldan MD
--- NOTE | 2019-02-23 16:36 | Diag Imaging Result Doc PS360 ---
EXAM: US GB < RUQ (LIMITED) 02/23/2019 HISTORY: ELEVATED lft TECHNIQUE: Right upper quadrant ultrasound COMMENT: The liver is hyperechoic. The gallbladder is apparently clear and nontender. There is no evidence of biliary dilatation the common bile duct measuring 4 mm. The right kidney is without evidence of hydronephrosis or mass. The aorta and inferior vena cava are obscured as is the pancreas. No abnormal fluid collections are present. IMPRESSION: Hepatic steatosis. No evidence of biliary dilatation or cholecystitis. Electronically signed by Kyle Shea 02/23/2019 4:33 PM
[2019-02-23] MEDS: LIBRIUM PO SCH (20:41)
[2019-02-23] MEDS: NEURONTIN PO SCH (20:41)
[2019-02-23] MEDS ORDERED: CHLORASEPTIC SPRAY MT PRN (22:50)
[2019-02-24] MEDS: ZOFRAN IV PRN (02:01)
[2019-02-24] MEDS: MORPHINE IV PRN ×6 (02:01→22:14)
[2019-02-24] MEDS: REGLAN IV SCH ×4 (02:03→21:50)
[2019-02-24] MEDS ORDERED: G.I. COCKTAIL PO ONE ×2 (03:04→03:07)
[2019-02-24] MEDS: NS 1,000 ML IV SCH (04:50)
[2019-02-24] MEDS: HUMALOG SUBQ SCH ×3 (06:05→16:36)
[2019-02-24 06:46] LABS: AGAP 10; ALBUMIN 3.2 g/dL (3.5-5.0); BUN 10 mg/dL (8-22); CALCIUM 7.7 mg/dL (8.8-10.2); CHLORIDE 103 mmol/L (98-107); COSMO 273; CREATININE 0.7 mg/dL (0.7-1.2); ESTIMATED GFR > 60; GLUCOSE 101 mg/dL (70-104); POTASSIUM 3.4 mmol/L (3.5-5.1); SODIUM 137 mmol/L (136-145); TCO2 24 mmol/L (25-35)
[2019-02-24 07:22] LABS: BASO# 0.03 X1000 (0.0-0.2); BASO% 0.6 % (0.0-0.8); EOS# 0.06 X1000 (0.0-0.7); EOS% 1.1 % (0.0-10.0); HEMATOCRIT 38.2 % (42.0-52.0); HEMOGLOBIN 13.5 g/dL (14.0-18.0); LYMPH# 1.94 X1000 (1.2-3.4); LYMPH% 36.3 % (20.5-51.1); MCH 32.9 PG (27-31); MCHC 35.3 g/dL (33-37); MCV 93.2 FL (81-99); MONO# 0.51 X1000 (0.11-0.59); MONO% 9.5 % (1.7-9.3); MPV 10.3 FL (7.4-10.4); NEUT# 2.81 X1000 (1.4-6.5); NEUT% 52.5 % (42.2-75.2); PLT 69 X1000 (130-400); RDW 12.3 % (11.5-14.5); WBC 5.35 X1000 (4.8-10.8)
[2019-02-24] MEDS ORDERED: DUONEB (A & A) INH ONE (07:46)
[2019-02-24] MEDS ORDERED: POTASSIUM PHOSPHATE 60 MEQ in NS 250 ML IV ONE (08:12)
[2019-02-24] MEDS: LIBRIUM PO SCH ×2 (08:40→21:47)
[2019-02-24] MEDS: PROTONIX IV SCH ×2 (08:40→21:50)
[2019-02-24] MEDS: NEURONTIN PO SCH ×2 (08:40→21:50)
[2019-02-24] MEDS: CARAFATE LIQUID PO SCH ×3 (10:43→21:49)
[2019-02-24] MEDS: VITAMIN B-1 PO SCH (10:43)
--- NOTE | 2019-02-24 10:45 | PROGRESS NOTE ---
DATE: 02/24/2019 SUBJECTIVE: This morning Mr. Cleary refers to be doing fairly okay. He complains about some heartburn and epigastric discomfort. OBJECTIVE: Vital signs: Blood pressure is 110/70, pulse of 85, respirations 20, temperature is 99 degrees. General: Mr. Cleary is a 43-year-old male. He is in bed in no distress. HEENT: Mucosa is pink and moist. Anicteric. Acyanotic. Neck: Supple. Chest: Clear to auscultation. No crepitations. No rhonchi. Cardiovascular: Regular rate and rhythm. There is no murmurs, no rubs, no gallops. Abdomen: Soft, minimally tender in the right upper quadrant and epigastrium. No guarding. No rebound. Bowel sounds are present. Extremities: No pedal edema. CERAMIC ARTIST: Patient is awake, alert, and oriented. There is no focal neurological deficit. LABORATORY DATA: WBC is 5.35, hemoglobin is 13.5, platelet count of 69,000, potassium 3.4. Rest of chemistry is unremarkable except for phosphorus of 2.0, albumin is 3.2. ASSESSMENT: 1. Alcohol intoxication on presentation with alcohol level of 420. The patient seems to be now sober. 2. Alcohol-induced hepatitis with hepatitis discriminant function for estimated disease severity of 15. No need for steroids at this point. 3. Lactic acidosis from dehydration resolved. 4. Right upper quadrant pain secondary to acute alcohol hepatitis. 5. Hepatosteatosis from alcohol use. 6. Alcohol use and abuse. 7. Trance the electrolyte abnormality associated with alcohol use and abuse (hypophosphatemia and hypokalemia). We will replace these. 8. Thrombocytopenia presumably alcohol related. 9. Mild epigastric discomfort questionable for gastroesophageal reflux disease/gastroesophagitis. Patient is on proton pump inhibitor. We will add Carafate to the regimen. PLAN: In general, I think Mr. Cleary is doing fairly okay. Vitals are now stable. He does not show any signs of withdrawal or remarkably intoxicated now. He is tolerating his diet. We are going to transfer him from the ICU to the medical floor. cc: Noe Joseph MD
[2019-02-24 11:49] LABS: ALB/GLOB RATIO 1.1; ALBUMIN 3.1 g/dL (3.5-5.0); DIRECT BILIRUBIN 1.5 mg/dL (0.00-0.20); TOTAL BILIRUBIN 3.08 mg/dL (0.20-1.00); TOTAL PROTEIN 5.9 g/dL (6.3-8.3)
[2019-02-24 13:31] LABS: HEPATITIS PROFILE ACUTE SEE COMMENTS
[2019-02-24] MEDS: ATIVAN IV PRN ×2 (18:40→22:13)
--- NOTE | 2019-02-24 21:27 | GASTROENTEROLOGY PROGRESS NOTE ---
DATE: 02/24/2019 SUBJECTIVE: Patient was asleep at the time of my evaluation. Lab results were reviewed. Bilirubin elevated today 3.80. AST and ALT have improved slightly, 145 and 88. Hepatitis C viral load and genotype are pending. OBJECTIVE: Vital Signs: Temperature 99 degrees, pulse 77, respirations 18, blood pressure 134/81. General: The patient was resting asleep in no acute distress. LABORATORY: Hematology: WBC 5.35, hemoglobin 13.5, hematocrit 38.2, MCV 93.2, platelets 69,000. Chemistry: Sodium 137, potassium 3.4, chloride 103, CO2 24, BUN 10, creatinine 0.7, glucose 101, total bilirubin 3.08. AST 145, ALT 88. ASSESSMENT AND PLAN: 1. Alcohol intoxication. Patient is under precautions for withdrawal. 2. Abdominal pain. Patient has history of hepatitis C, history of hepatic steatosis. Total bilirubin elevated today. AST and ALT improved slightly. We will continue to follow peripherally. I have ordered has hepatitis C genotype and HCV RNA. Depending on those findings, we can discuss hepatitis C treatment as an outpatient. He would have to get the patient assistance due to his lack of insurance. I have recommended him follow up with us in the office. We will continue to follow peripherally and further plans will be made according to his progress. I have discussed this case with Dr. Vazquez. Dictated by GREGG Edgar for Tomer Vazquez MD cc: GREGG Roldan MD
[2019-02-25] MEDS: HUMALOG SUBQ SCH ×3 (01:48→11:08)
[2019-02-25] MEDS: REGLAN IV SCH ×3 (02:28→14:17)
[2019-02-25] MEDS: MORPHINE IV PRN ×2 (02:29→07:37)
[2019-02-25] MEDS: CARAFATE LIQUID PO SCH ×3 (02:34→14:16)
[2019-02-25] MEDS: ATIVAN IV PRN (04:18)
[2019-02-25 07:25] LABS: RBC 4.32 XMIL (4.7-6.1); WBC 5.92 X1000 (4.8-10.8)
[2019-02-25 07:26] LABS: BASO# 0.04 X1000 (0.0-0.2); BASO% 0.7 % (0.0-0.8); EOS# 0.15 X1000 (0.0-0.7); EOS% 2.5 % (0.0-10.0); HEMATOCRIT 38.9 % (42.0-52.0); HEMOGLOBIN 14.2 g/dL (14.0-18.0); LYMPH# 2.23 X1000 (1.2-3.4); LYMPH% 37.7 % (20.5-51.1); MCH 32.9 PG (27-31); MCHC 36.5 g/dL (33-37); MONO% 10.1 % (1.7-9.3); MPV 10.7 FL (7.4-10.4); PLT 72 X1000 (130-400)
[2019-02-25 07:49] LABS: AGAP 9; ALB/GLOB RATIO 1.1; ALBUMIN 3.3 g/dL (3.5-5.0); ALKALINE PHOSPHATASE 76 U/L (32-122); BUN 12 mg/dL (8-22); CALCIUM 8.2 mg/dL (8.8-10.2); CHLORIDE 101 mmol/L (98-107); COSMO 268; CREATININE 0.7 mg/dL (0.7-1.2); ESTIMATED GFR > 60; GLUCOSE 93 mg/dL (70-104); GOT 114 U/L (10-34); GPT 79 U/L (10-44); MAGNESIUM 1.9 mg/dL (1.5-2.7); PHOSPHORUS 2.8 mg/dL (2.7-4.5); POTASSIUM 3.4 mmol/L (3.5-5.1); SODIUM 134 mmol/L (136-145); TCO2 24 mmol/L (25-35); TOTAL BILIRUBIN 2.42 mg/dL (0.20-1.00); TOTAL PROTEIN 6.3 g/dL (6.3-8.3)
[2019-02-25] MEDS: VITAMIN B-1 PO SCH (08:27)
[2019-02-25] MEDS: PROTONIX IV SCH (08:28)
[2019-02-25] MEDS: NEURONTIN PO SCH (08:28)
[2019-02-25] MEDS: SODIUM CHLORIDE 0.9% INJ SCH (08:28)
[2019-02-25] MEDS: LIBRIUM PO SCH (08:30)
[2019-02-25] MEDS ORDERED: THERA M PLUS PO SCH (09:00)
[2019-02-25 11:29] VITALS: BP 144/104
[2019-02-25 20:24] LABS: HEPATITIS C GENOTYPE SEE COMMENTS
--- NOTE | 2019-02-26 13:27 | DISCHARGE SUMMARY ---
ADMISSION DATE: 02/22/2019 DISCHARGE DATE: 02/25/2019 DISPOSITION: Home. FOLLOWUP: Follow-up will be with Dr. Vazquez. CONSULTATION DURING THIS ADMISSION: GI was consulted. Patient was seen by Dr. Vazquez. INVASIVE PROCEDURES DURING THIS ADMISSION: None. IMAGING STUDIES OF SIGNIFICANCE: 1. A chest x-ray initially shows stable chest, no acute pathology. 2. An ultrasound of the abdomen showed hepatic steatosis. No evidence of biliary dilation or cholecystitis. 3. Serology testing did show hepatitis B core antibody IgM positive and hepatitis C antibody positive. ASSESSMENT ON ADMISSION: 1. Alcohol intoxication with level of 422 on admission. 2. Transaminitis. 3. Lactic acidosis. 4. Right upper quadrant pain. 5. History of hepatic steatosis. 6. Alcohol use and abuse. DIAGNOSES AT THE TIME OF DISCHARGE: 1. Alcohol use and abuse with intoxication on presentation. Alcohol level 420. 2. Transaminitis, presumably combination of alcohol and viral hepatitis 3. Lactic acidosis from dehydration, resolved. 4. Right upper quadrant pain, secondary to acute hepatitis. 5. Hepatic steatosis from alcohol use and abuse. 6. Electrolyte abnormality associated with alcohol use (hypophosphatemia and hypokalemia, all resolved). 7. Thrombocytopenia, presumably alcohol related, was improving. 8. Suspected esophagitis/gastritis. The patient has been started on proton pump inhibitor and Carafate, and will follow up with Gastroenterology. 9. Hepatitis C antibody positive. 10. Acute hepatitis B with the core IgM antibody positive noted. DISCHARGE MEDICATIONS: 1. Carafate 1 g p.o. 4 times per day. 2. Gabapentin 100 mg b.i.d. 3. Pantoprazole 40 mg p.o. daily. 4. Multivitamin 1 tablet daily. 5. Thiamine 100 mg p.o. daily. 6. Tramadol 50 mg p.o. q. 8 hours. 7. Baclofen 5 mg b.i.d. PRESENTING COMPLAINT: Alcohol intoxication. HISTORY OF PRESENTING COMPLAINT: Mr. Cleary is a 43-year-old gentleman, who is known to have hepatitis C, alcohol use and abuse, came to the emergency department because of nausea and vomiting, vomiting some coffee-ground material. He was also hurting in the right upper quadrant and he felt extremely weak and altered because of alcohol intoxication. Upon presenting to the emergency department, he was evaluated. His alcohol serum level was 420. He was subsequently admitted to the ICU for close monitoring for possible withdrawal symptoms. HOSPITAL COURSE: Mr. Cleary was admitted to the ICU initially, was adequately fluid resuscitated, was started on PPI because of the suspected GI bleed, and he was also placed on possible withdrawal precautions. Throughout the hospital course, he did improve from the ICU. He was transferred to the medical floor. He was started back on regular diet which he tolerated very well. GI was consulted. Patient was seen by Dr. Vazquez. Viral serology for hepatitis were all sent, which came back positive for hepatitis C antibody, and also the hepatitis B core IgM was positive, which would be indicative of acute hepatitis B. Mr. Cleary, however, continues to show improvement. He did not really go into any withdrawal. We did have an extensive discussion with him about alcohol cessation. This morning he feels a lot better. We think he is stable enough for discharge and to follow up with Dr. Vazquez on an outpatient basis. All the discharge instructions were discussed with him. There was no family member at the bedside at the time of the encounter. Social Work have also been consulted for medication assistance. TIME SPENT FOR DISCHARGE: 36 minutes. cc: MD Tomer Richards MD
== END 2019-02-25 14:45 | disposition home or self-care (01) | DRG 897 ==
LOC: ED 12:47 → SUATTDRO 18:50 → EDIPHOLD 18:50 → ICU 02-23 07:49 → 3N 02-24 15:15
PROVIDERS: ATTEND Internal Medicine